=== PATIENT | female | born 1995 | race Asian ===

== ENCOUNTER → 2018-10-21 | Day surgery (SDC) | payer OTHER ==
--- NOTE | 2018-10-22 17:15 | PATH ---
Surgical Pathology Report Patient Name: CORRIE JENKINS [facility]. Rec. #: [id number] /Age/Gender: 1995 (Age: 23) / F Account: [id number] Location: [facility] Taken: 10/21/2018 Received: 10/21/2018 Reported: 10/22/2018 Physicians: Annelise Newman M.D. Specimen(s) Received A: RIGHT BREAST 6-8:00 B: LEFT BREAST 6:001.6CM Clinical History Palpable mass Ultrasound findings: Probably benign Right 6-8:00, solid mass, 2.3 CM Left 6:00, 1.6CM Final Diagnosis A. 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 B. BREAST, LEFT, 6:00, ULTRASOUND GUIDED CORE BIOPSY: BENIGN BREAST PARENCHYMA WITH FIBROADENOMATOID CHANGES AND ASSOCIATED PROLIFERATIVE FIBROCYSTIC CHANGES INCLUDING STROMAL FIBROSIS, MICROCYSTS, COLUMNAR CELL CHANGE, AND USUAL DUCTAL HYPERPLASIA. Electronically Signed Eugenie Patino M.D. Gross Description A. Received in formalin labeled "right 6-8:00," are 4 vazquez-yellow, cylindrical portions of fibroadipose tissue ranging from 0.8-1.0 cm in length and averaging 0.1 cm in diameter. The specimens are submitted in toto in one cassette. B. Received in formalin labeled "left 6:00," are 5 vazquez-yellow, cylindrical portions of fibroadipose tissue ranging from 0.2-2.1 cm in length and averaging 0.1 cm in diameter. The specimens are submitted in toto in one cassette. Time to formalin fixation: Less than one minute Total formalin fixation time: Approximately 8 hours. 10/21/2018 saudi10/21/2018
== END | disposition home or self-care (01) ==
LOC: JRADUS-SUR 09:04
PROVIDERS: ATTEND Family Medicine
PROC: 0HBV3ZX Excision of Bilateral Breast, Percutaneous Approach, Diagnostic (ICD-10-PCS; principal; 2018-10-21)
DX: N60.12 Diffuse cystic mastopathy of left breast (principal); N60.11 Diffuse cystic mastopathy of right breast; N60.92 Unspecified benign mammary dysplasia of left breast; N60.91 Unspecified benign mammary dysplasia of right breast
CPT/HCPCS: 19083; 19084; 87899; 88305-TC; A4648